=== PATIENT | male | born 1960 | race Caucasian/White ===

== ENCOUNTER → 2016-12-14 | Outpatient (CLI) | payer MEDICARE, BC ==
[~2016-12-14] MED LIST: AMBIEN CR12.5 MG PO; ASPIRIN EC325 MG PO; COMBIVENT0.074 GM/I INH; CYMBALTA60 MG PO; LASIX40 MG PO; LEVAQUIN750 MG PO; LIORESAL TAB 1010 MG PO; LIPITOR20 MG PO; LOPRESSOR 25 MG25 MG PO; MULTI-VITAMIN1 EACH PO; NEURONTIN 400400 MG PO; PLETAL 100 MG100 MG PO; ROXICODONE15 MG PO; TRUJEO; VALIUM 5 MG TAB5 MG PO; VICTOZA 3-0.6 MG/0.1 SC
== END ==
LOC: RAD 13:01
DX: M25.561 Pain in right knee (principal); M25.562 Pain in left knee; Z91.018 Allergy to other foods; Z79.82 Long term (current) use of aspirin; Z79.899 Other long term (current) drug therapy
CPT/HCPCS: 73564

== ENCOUNTER → 2020-08-02 | Outpatient (CLI) | payer MEDICARE, BC ==
[~2020-08-02] MED LIST changes: +ASPIRIN CHEWABL81 MG PO; +AUGMENTIN TAB875 MG PO; +BACTRIM DS TAB1 EACH PO; +BACTROBAN OINT22 GM EXT; +CLEOCIN HCL300 MG PO; +CORGARD20 MG PO; +FISH OIL 500 M1 EAC2 PO; +IRON18 MG PO; +IRON325 M1 PO; +MULTIVITAMINS1 EAC1 PO; +NORCO 10-325 T1 EACH PO; +OMEGA 3 FISH O1 EACH PO; +OXYCONTIN30 MG PO; +POTASSIUM 25 M25 MEQ PO; -TRUJEO; +TRUJEO SC; +VIBRAMYCIN100 MG PO
[2020-08-02 13:59] LABS: HEMOGLOBIN 13.6 gm/dl (14.0-17.5); RED BLOOD COUNT 4.73 M/UL (4.20-5.50); WHITE BLOOD COUNT 4.8 K/UL (4.5-11.0)
[2020-08-02 14:28] LABS: BUN/CREATININE RATIO 20 (0-10)
== END ==
LOC: LAB 13:00
DX: Z01.818 Encounter for other preprocedural examination (principal); M48.04 Spinal stenosis, thoracic region; R94.31 Abnormal electrocardiogram [ECG] [EKG]
CPT/HCPCS: 36415; 71046; 80053; 85025; 93005

== ENCOUNTER → 2020-12-30 | Outpatient (CLI) | payer MEDICARE, BC ==
[2020-12-30 12:02] LABS: HEMOGLOBIN 11.8 gm/dl (14.0-17.5); RED BLOOD COUNT 4.26 M/UL (4.20-5.50); WHITE BLOOD COUNT 3.1 K/UL (4.5-11.0)
[2020-12-30 13:09] LABS: BUN/CREATININE RATIO 17 (0-10)
[2020-12-31 11:14] LABS: CREATININE, URINE 24.9 mg/dL (Not Estab.); MICROALB/CREAT RATIO <12 (0-29)
[2021-01-01 16:09] LABS: CHOLESTEROL, TOTAL 141 mg/dL (100-199); HDL SIZE 9.4 nm (>=9.2); HDL-C 38 mg/dL (>39); HDL-P (TOTAL) 19.4 umol/L (>=30.5); LARGE VLDL-P 4.9 nmol/L (<=2.7); LDL SIZE 21.1 nm (>20.5); LDL SIZE 21.1 nm (>=20.8); LDL-C 83 mg/dL (0-99); LDL-P 862 nmol/L (<1000); LP-IR SCORE 47 (<=45); SMALL LDL-P 120 nmol/L (<=527); TRIGLYCERIDES 110 mg/dL (0-149); VLDL SIZE 48.2 nm (<=46.6)
== END ==
LOC: LAB 11:00
PROVIDERS: Emergency Medicine
DX: I10 Essential (primary) hypertension (principal); E78.2 Mixed hyperlipidemia; E11.65 Type 2 diabetes mellitus with hyperglycemia; D69.59 Other secondary thrombocytopenia
CPT/HCPCS: 36415; 80053; 80061; 82043; 82570; 83036; 83704; 84443; 84550; 85025

== ENCOUNTER → 2021-04-21 | Outpatient (CLI) | payer MEDICARE, BC ==
[2021-04-21 17:28] LABS: ADENOVIRUS F 40/41 Not Detected (Negative); ASTROVIRUS Not Detected (Negative); CAMPYLOBACTER Not Detected (Negative); CRYPTOSPORIDIUM Not Detected (Negative); E.COLI 0157 Not Detected (Negative); ENTAMOEBA HISTOLYTICA Not Detected (Negative); ENTEROAGGREGATIVE E.COLI (EAEC Not Detected (Negative); ENTEROPATHOGENIC E.COLI (EPEC) Not Detected (Negative); ENTEROTOXIGENIC E.COLI (ETEC) Not Detected (Negative); GIARDIA LAMBLIA Not Detected (Negative); NOROVIRUS GI/GII Not Detected (Negative); PLESIOMONAS SHIGELLOIDES Not Detected (Negative); ROTOVIRUS A Not Detected (Negative); SALMONELLA Not Detected (Negative); SAPOVIRUS Not Detected (Negative); SHIG/ENTEROINVAS.ECOLI (EIEC) Not Detected (Negative); SHIGA-LIK TOX.PRO.E.COLI (STEC Not Detected (Negative); VIBRIO Not Detected (Negative); VIBRIO CHOLERAE Not Detected (Negative); YERSINIA ENTEROCOLITICA Not Detected (Negative)
[2021-04-22 09:50] LABS: CLOSTRIDIUM DIFFICILE TOX A/B DETECTED (Negative)
== END ==
LOC: LBRF 16:47
PROVIDERS: Emergency Medicine
DX: R19.7 Diarrhea, unspecified (principal)
CPT/HCPCS: 87507

== ENCOUNTER → 2022-02-08 | Outpatient (CLI) | payer MEDICARE, BC | LOC: KOH-I 10:00 | DX: J01.81 Other acute recurrent sinusitis (principal) | CPT/HCPCS: 70486 ==

== ENCOUNTER → 2022-03-23 | Outpatient (CLI) | payer MEDICARE, BC ==
[2022-03-23 12:29] LABS: BUN/CREATININE RATIO 17 (0-10)
== END ==
LOC: LAB 11:34
PROVIDERS: Emergency Medicine
DX: Z12.5 Encounter for screening for malignant neoplasm of prostate (principal); I10 Essential (primary) hypertension; E78.2 Mixed hyperlipidemia; E11.65 Type 2 diabetes mellitus with hyperglycemia
CPT/HCPCS: 36415; 80053; 83036; G0103